=== PATIENT | male | born 1955 | race Caucasian/White ===

== ENCOUNTER 2017-10-01 11:37 | Emergency (ER) | payer MEDICARE | END 2017-10-01 12:52 | disposition home or self-care (01) | LOC: D.ER 11:37 | DX: M25.512 Pain in left shoulder (principal); B19.20 Unspecified viral hepatitis C without hepatic coma; F17.200 Nicotine dependence, unspecified, uncomplicated ==

== ENCOUNTER → 2018-08-17 17:34 | Outpatient (CLI) | payer MEDICARE | END | disposition home or self-care (01) | LOC: D.LABREF 17:34 | DX: R31.9 Hematuria, unspecified (principal) ==

== ENCOUNTER → 2018-08-19 14:06 | Outpatient (CLI) | payer MEDICARE | END | disposition home or self-care (01) | LOC: D.CT 14:06 | DX: R31.21 Asymptomatic microscopic hematuria (principal) ==

== ENCOUNTER 2018-09-13 09:30 | Day surgery (SDC) | payer MEDICARE ==
[2018-09-12 12:34] LABS: APTT 30.2 SECONDS (22.8-39.4); INR 1.15 (0.85-1.17); PROTIME 14.4 SECONDS (11.6-15.0)
[2018-09-12 12:40] LABS: BASOPHILS 0.5 % (0-2); EOSINOPHILS 3.8 % (0-7); HEMATOCRIT 39.2 % (42.0-54.0); HEMOGLOBIN 13.4 g/dL (13.5-17.5); IMMATURE GRANULOCYTES 0.2 % (0-5); LYMPHOCYTES 26.5 % (15-50); MCH 30.9 pg (26.0-34.0); MCHC 34.2 g/dL (31.0-37.0); MCV 90.3 fL (80.0-100.0); MEAN PLATELET VOLUME 12.5 fL (7.4-10.4); MONOCYTES 7.2 % (2-11); NEUTROPHILS 61.8 % (40-80); PLATELET COUNT 101 10x3/uL (130-400); RBC 4.34 10x6/uL (4.20-6.10); RDW 13.6 % (11.5-14.5); WBC 6.4 10x3/uL (4.8-10.8)
[2018-09-12 12:47] LABS: ALBUMIN 4.5 g/dL (3.4-5.0); ALKALINE PHOSPHATASE 58 U/L (46-116); ALT (SGPT) 15 U/L (10-68); BILIRUBIN - TOTAL 0.62 mg/dL (0.2-1.3); CALC OSMOLALITY 278 mosm/kg (275-300); CALCIUM 9.2 mg/dL (8.5-10.1); CARBON DIOXIDE 30.9 mmol/L (21.0-32.0); CHLORIDE - SERUM 101 mmol/L (98-107); GLUCOSE 114 mg/dL (74-106); POTASSIUM - SERUM 4.7 mmol/L (3.5-5.1); PROTEIN - SERUM 7.6 g/dL (6.4-8.2); SODIUM 139 mmol/L (136-145); UREA NITROGEN 13 mg/dL (7-18); eGFR NON AFRICAN AMERICAN 80 mL/min (90-120)
[~2018-09-13] VITALS: Ht 193 cm; Wt 90.7 kg
--- NOTE | ~2018-09-13 | OP ---
PATIENT NAME: ELIJAH WILL MEDICAL RECORD: [id number] :53 LOCATION:.[facility] ADMISSION DATE: SURGEON: JOSÉ LUIS WOOTEN MD DATE OF OPERATION: 09/13/2018 SURGEON: José Luis Wooten MD ANESTHESIA: General anesthesia by Rocio Fuentes CRNA DIAGNOSES: Microscopic hematuria, obstructive BPH. PROCEDURES: Cystoscopy and UroLift times 5 implants used. FINDINGS: Obstructive bladder neck region. Single ureteral orifices bilaterally. Large bladder diverticulum cranial to the right ureteral orifice. No bladder tumors seen. Heavily trabeculated bladder. BLOOD LOSS: None. CLINICAL HISTORY: This is a 62-year-old male, who is being worked up for microscopic hematuria. He had a CT scan of the abdomen and pelvis, which showed no renal stones and a 6-mm left renal lesion, which will require repeat imaging at a later date. His urine culture had no growth and his urine cytology was benign. He has obstructive voiding symptoms. His IPSS is 20 and his quality of life score is 3. His prostate size is about 40 grams on rectal examination. He comes today to have cystoscopy performed for the hematuria and UroLift procedure performed for BPH. HE IS ALLERGIC TO CODEINE AND ZOLOFT. 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 DESCRIPTION OF PROCEDURE: The patient was given induction of general anesthesia. He was then placed into dorsal lithotomy position and prepped and draped. A 30-degree lens on the UroLift scope was introduced into the bladder. No urethral strictures were seen. The prostate for the most part is nonobstructive, but towards the bladder neck it is obstructive. He has a very tight bladder neck. Going into the bladder, single ureteral orifices were seen. No bladder tumors were seen. The bladder was trabeculated and there is a diverticulum present, which is just cranial to the right ureteral orifice. No bladder tumors were seen within the diverticulum. We then introduced the first UroLift implant and this was placed about 1.5-2 cm proximal to the bladder neck. This was placed in the left lateral lobe near the anterior wall. The corresponding UroLift device was placed on the right lateral lobe, near the anterior wall. We then imaged closer to the verumontanum and placed one retention suture on each side of the prostate at this level. On visualizing the situation with the obturator, it seemed that we may be able to place one more on the left lateral lobe in between our pre-existing clips. When this was attempted, the device jammed and the suture could not be released. Therefore, we abandoned further attempts to do this. The channel is open on visualization with an obturator. The bladder was emptied through the cystoscope sheath and then the patient was awakened and brought to the recovery room. TRANSINT:[id number] Voice Confirmation ID: [id number] DOCUMENT ID: [id number] OPERATIVE REPORT [id number] ELIJAH WILL ROBERT S MD at 1406 CC: [id number] DICTATION DATE: 09/13/18 1325 [employer] POLICE: 09/13/18 1343 [facility] [address] [place] [address]
[2018-09-13 09:26] VITALS: BP 132/67; Ht 193 cm; Wt 90.7 kg
[~2018-09-13 09:30] MED LIST: CLARITIN 10 MG10 MG PO; VALIUM10 MG PO
== END 2018-09-13 20:30 | disposition home or self-care (01) ==
LOC: D.OPS 09:30 → D.PAN 11:00 → D.OPS 12:10 → D.PAN 12:55 → D.OPS 13:45
PROVIDERS: Anesthesiology
DX: N40.1 Benign prostatic hyperplasia with lower urinary tract symptoms (principal); N13.8 Other obstructive and reflux uropathy; R31.29 Other microscopic hematuria